=== PATIENT | female | born 1990 | race Caucasian/White ===

== ENCOUNTER 2019-05-07 06:57 | Inpatient (IN) | payer BC ==
[2019-05-07] MEDS ORDERED: Nalbuphine 10 MG/1 ML Vial IVPUSH PRN (07:02)
[2019-05-07] MEDS ORDERED: Sodium Chloride 0.9% 10 ML Syringe FLUSH PRN (07:02)
[2019-05-07] MEDS ORDERED: Ondansetron 4 MG/2 ML SDV IVPUSH PRN (07:02)
--- NOTE | 2019-05-07 07:05 | PCM.LDHP ---
L&D History of Present Illness - General Date of Service: 05/07/19 Admit Problem/Dx: Patient Status Order with Admit Dx/Problem 05/07/19 07:02 Patient Status [ADT] Routine Admission Diagnosis/Problem Admission Diagnosis/Problem Normal in third trimester Source of Information: Patient History Limitations: Reports: No Limitations - History of Present Illness Introduction:: Patient is a 28 y/o at 39 3/7 wks who presents for IOL for distance from hospital. Doing well today. No issues with contractions. Good FM. 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 Para: 2 LMP (Approximate): - Past Surgical History Female Surgical History: Reports: Breast Reconstruction Social & Family History - Tobacco Use Smoking Status *Q: Never Smoker - Alcohol Use Alcohol Use History: No - Recreational Drug Use Recreational Drug Use: No H&P Review of Systems - Review of Systems: Review Of Systems: See Below General: Reports: No Symptoms Pulmonary: Reports: No Symptoms Cardiovascular: Reports: No Symptoms Gastrointestinal: Reports: No Symptoms Genitourinary: Reports: No Symptoms Musculoskeletal: Reports: No Symptoms Skin: Reports: No Symptoms Neurological: Reports: No Symptoms L&D Exam - Exam Exam: See Below - OB Specific Contraction Intensity: Irritability Movement: Active Heart Tones: Present Heart Tones per Min: 140 Heart Rate (FHR) Variability: Moderate (6-25 bmp) Presentation: Vertex - Henderson Score Henderson Score Cervix Position: Midposition Henderson Score Consistency: Soft Henderson Score Effacement: 51-70% Henderson Score Dilation: 1-2 cm Henderson Score Infant's Station: -3 Henderson Score Total: 6 - Exam General: Alert, Oriented, Cooperative Lungs: Clear to Auscultation, Normal Respiratory Effort Cardiovascular: Regular Rate, Regular Rhythm GI/Abdominal Exam: Soft, Non-Tender Genitourinary: Normal external exam Extremities: Normal Inspection Skin: Warm, Dry, Intact - Patient Data Result Diagrams: 05/07/19 07:32 - Problem List (1) 39 weeks gestation of SNOMED Code(s): 86584462 ICD Code: Z3A.39 - 39 WEEKS GESTATION OF Status: Acute Current Visit: Yes Problem List Initiated/Reviewed/Updated: Yes Orders Last 24hrs: Active Orders 24 hr Category Date Time Status Patient Status [ADT] Routine ADT 05/07/19 07:02 Ordered Communication Order [RC] ASDIRECTED Care 05/07/19 07:02 Ordered Communication Order [RC] ASDIRECTED Care 05/07/19 07:02 Ordered Communication Order [RC] ASDIRECTED Care 05/07/19 07:02 Ordered Communication Order [RC] ASDIRECTED Care 05/07/19 07:02 Ordered Heart Tones [RC] ASDIRECTED Care 05/07/19 07:03 Ordered Monitoring [RC] INTERMITTENT Care 05/07/19 07:02 Ordered Non Stress Test [RC] PER UNIT ROUTINE Care 05/07/19 07:02 Ordered Notify Provider [RC] ASDIRECTED Care 05/07/19 07:02 Ordered Notify Provider [RC] PRN Care 05/07/19 07:02 Ordered Peripheral IV Care [RC] . DIRECTED Care 05/07/19 07:03 Ordered Vaginal Exam [RC] ASDIRECTED Care 05/07/19 07:02 Ordered Vital Signs [RC] ASDIRECTED Care 05/07/19 07:02 Ordered Regular Diet [DIET] Diet 05/07/19 Breakfast Ordered CBC W/O DIFF,HEMOGRAM [HEME] Routine Lab 05/07/19 07:02 Ordered RAPID PLASMA REAGIN,RPR [CHEM] Routine Lab 05/07/19 07:02 Ordered TYPE AND SCREEN [BBK] Routine Lab 05/07/19 07:02 Ordered Lactated Ringers [Ringers, Lactated] 1,000 ml Med 05/07/19 07:15 Ordered IV ASDIRECTED Nalbuphine [Nubain] Med 05/07/19 07:02 Ordered 10 mg IVPUSH Q2H PRN Ondansetron [Zofran] Med 05/07/19 07:02 Ordered 4 mg IVPUSH Q4H PRN Oxytocin/Lactated Ringers [Pitocin in LR 10 Units/1,000 Med 05/07/19 07:15 Ordered ML] 10 unit in 1,000 ml IV .CONTINUOUS Oxytocin/Lactated Ringers [Pitocin in LR 10 Units/1,000 Med 05/07/19 07:15 Ordered ML] 10 unit in 1,000 ml IV TITRATE Sodium Chloride 0.9% [Saline Flush] Med 05/07/19 07:02 Ordered 10 ml FLUSH ASDIRECTED PRN Electronic Heart Tones Ext w TOCO [WOMSER] Ot 05/07/19 07:02 Ordered Routine Electronic Heart Tones Internal [WOMSER] Per Unit Ot 05/07/19 07:02 Ordered Routine Peripheral IV Insertion Adult [OM.PC] Routine Ot 05/07/19 07:02 Ordered Assessment/Plan Comment:: 28 y/o woman at 39 3/7 wks presents for IOL due to distance from hospital * Labs * GBS negative, no need for antibiotics * Pain management per patient preference * Pitocin and then AROM when able * Anticipate
[2019-05-07] MEDS ORDERED: Oxytocin/Lactated Ringers 10 UNIT/1,000 ML BAG IV SCH ×2 (07:15)
[2019-05-07] MEDS: Lactated Ringers 1,000 ML IV SCH ×4 (08:00→15:06)
[2019-05-07] MEDS ORDERED: fentaNYL 100 MCG/2 ML SDV EPIDUR PRN (08:56)
[2019-05-07] MEDS ORDERED: diphenhydrAMINE 50 MG/ML SDV IVPUSH PRN (08:56)
[2019-05-07] MEDS ORDERED: Bupivacaine/fentaNYL/NS 100 ML Bag EPIDUR PRN (08:56)
[2019-05-07] MEDS ORDERED: ePHEDrine 50 MG/ML SDV IVPUSH PRN (08:56)
--- NOTE | 2019-05-07 08:56 | PCM.PREANE ---
Preanesthetic Assessment - Procedure Proposed Procedure: JERONIMO - Anesthesia/Transfusion/Family Hx Anesthesia History: Prior Anesthesia Without Reaction Family History of Anesthesia Reaction: No Transfusion History: No Prior Transfusion(s) - Review of Systems General: No Symptoms Pulmonary: Cough (has a cold- better this week than last) Cardiovascular: No Symptoms Gastrointestinal: No Symptoms Neurological: No Symptoms Other: Reports: None - Physical Assessment Vital Signs: Last Vital Signs Temp 96.1 F 05/07/19 07:58 Pulse 86 05/07/19 07:58 Resp 16 05/07/19 07:58 BP 125/76 05/07/19 07:58 Pulse Ox 98 05/07/19 07:58 Height: 5 ft 4 in Weight: 103.873 kg ASA Class: 2 Mental Status: Alert & Oriented x3 Airway Class: Mallampati = 1 Dentition: Reports: Normal Dentition Thyro-Mental Finger Breadths: 3 Mouth Opening Finger Breadths: 3 ROM/Head Extension: Full Lungs: Clear to Auscultation, Normal Respiratory Effort Cardiovascular: Regular Rate, Regular Rhythm - Lab Values: Laboratory Last Values WBC 8.81 K/mm3 (3.98-10.04) 05/07/19 07:32 RBC 4.35 M/mm3 (3.98-5.22) 05/07/19 07:32 Hgb 11.6 gm/L (11.2-15.7) 05/07/19 07:32 Hct 35.0 % (34.1-44.9) 05/07/19 07:32 MCV 80.5 fl (79.4-94.8) D 05/07/19 07:32 MCH 26.7 pg (25.6-32.2) 05/07/19 07:32 MCHC 33.1 g/dl (32.2-35.5) 05/07/19 07:32 RDW Std Deviation 39.3 fL (36.4-46.3) 05/07/19 07:32 Plt Count 293 K/mm3 (182-369) 05/07/19 07:32 MPV 10.3 fl (9.4-12.3) 05/07/19 07:32 Blood Type AB POSITIVE 05/07/19 07:32 Gel Antibody Screen Negative 05/07/19 07:32 - Allergies Allergies/Adverse Reactions: Allergies Allergy/AdvReac Type Severity Reaction Status Date / Time No Known Allergies Allergy Verified 01/01/16 12:50 - Blood Blood Available: No - Acknowledgements Anesthesia Type Planned: Epidural Pt an Appropriate Candidate for the Planned Anesthesia: Yes Alternatives and Risks of Anesthesia Discussed w Pt/Guardian: Yes Pt/Guardian Understands and Agrees with Anesthesia Plan: Yes PreAnesthesia Questionnaire - Past Health History Medical/Surgical History: Denies Medical/Surgical History HEENT History: Reports: None Cardiovascular History: Reports: None Respiratory History: Reports: None Gastrointestinal History: Reports: None [employer]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 Musculoskeletal History: Reports: None Neurological History: Reports: None Psychiatric History: Reports: None - Past Surgical History Female Surgical History: Reports: Breast Reconstruction - SUBSTANCE USE Smoking Status *Q: Never Smoker Tobacco Use Within Last Twelve Months: No Second Hand Smoke Exposure: No Days Per Week of Alcohol Use: 0 Recreational Drug Use History: No - HOME MEDS Home Medications: Home Meds Acetaminophen [Tylenol] 650 mg PO Q4H PRN #0 tablet 01/02/16 [Rx] Benzocaine/Menthol [Dermoplast Pain Relief [place]] 1 spray TOP ASDIRECTED PRN #0 canister 01/02/16 [Rx] Docusate Sodium [Colace] 100 mg PO BID PRN #0 cap 01/02/16 [Rx] Ibuprofen [IJD: Ibuprofen] 600 mg PO Q4H PRN #0 tablet 01/02/16 [Rx] Witch Megha [Tucks] 1 pad TOP ASDIRECTED PRN #0 pad 01/02/16 [Rx] - CURRENT (IN HOUSE) MEDS Current Meds: Current Medications Lactated Ringer's (Ringers, Lactated) 1,000 mls @ 40 mls/hr IV ASDIRECTED ZAHRA Oxytocin/Lactated Ringer's (Pitocin In Lr 10 Units/1,000 Ml) 10 unit in 1,000 mls @ 12 mls/hr IV TITRATE ZAHRA; Protocol Last Titration: 05/07/19 08:35 Dose: 4 munits/min, 24 mls/hr Oxytocin/Lactated Ringer's (Pitocin In Lr 10 Units/1,000 Ml) 10 unit in 1,000 mls @ 500 mls/hr IV .CONTINUOUS ZAHRA Nalbuphine HCl (Nubain) 10 mg IVPUSH Q2H PRN PRN Reason: Pain Ondansetron HCl (Zofran) 4 mg IVPUSH Q4H PRN PRN Reason: Nausea/Vomiting Sodium Chloride (Saline Flush) 10 ml FLUSH ASDIRECTED PRN PRN Reason: Keep Vein Open
--- NOTE | 2019-05-07 12:08 | PCM.PNLD ---
Labor Progress Note - VS & Meds Vital Signs: Last Vital Signs Temp 35.6 C 05/07/19 07:58 Pulse 86 05/07/19 07:58 Resp 16 05/07/19 07:58 BP 125/76 05/07/19 07:58 Pulse Ox 98 05/07/19 07:58 Active Medications: Current Medications Diphenhydramine HCl (Benadryl) 25 mg IVPUSH Q6H PRN PRN Reason: pruritis Ephedrine Sulfate (Ephedrine Sulfate) 5 mg IVPUSH ASDIRECTED PRN PRN Reason: Hypotension Fentanyl (Sublimaze) 100 mcg EPIDUR Q3H PRN PRN Reason: Pain Last Admin: 05/07/19 11:40 Dose: 100 mcg Fentanyl/Bupivacaine HCl (Fentanyl/Bupivacaine/Ns 2 Mcg-0.125% 100 Ml) 100 ml EPIDUR ASDIRECTED PRN PRN Reason: Pain Last Admin: 05/07/19 11:40 Dose: 100 ml Lactated Ringer's (Ringers, Lactated) 1,000 mls @ 40 mls/hr IV ASDIRECTED ZAHRA Last Admin: 05/07/19 11:55 Dose: 100 mls/hr Oxytocin/Lactated Ringer's (Pitocin In Lr 10 Units/1,000 Ml) 10 unit in 1,000 mls @ 12 mls/hr IV TITRATE ZAHRA; Protocol Last Titration: 05/07/19 11:50 Dose: 12 munits/min, 72 mls/hr Oxytocin/Lactated Ringer's (Pitocin In Lr 10 Units/1,000 Ml) 10 unit in 1,000 mls @ 500 mls/hr IV .CONTINUOUS ZAHRA Nalbuphine HCl (Nubain) 10 mg IVPUSH Q2H PRN PRN Reason: Pain Ondansetron HCl (Zofran) 4 mg IVPUSH Q4H PRN PRN Reason: Nausea/Vomiting Sodium Chloride (Saline Flush) 10 ml FLUSH ASDIRECTED PRN PRN Reason: Keep Vein Open - Uterine Contractions Uterine Monitoring Mode: External Joiner Contraction Intensity: Mild to Moderate Uterine Resting Tone: Soft - Monitoring Monitor Mode: External Ultrasound Heart Rate (FHR) Baseline: 145 Heart Rate (FHR) Variability: Moderate (6-25 bmp) Accelerations: Present, 15x15 Decelerations: None Strip Review: Category I - Vaginal Exam Dilation (cm): 2 Effacement (Percent): 50 Station: -3 Cervical Position: Midposition - Labor Progress (Free Text) Labor Progress: Patient doing well. Now comfortable with epidural. AROM performed with release of clear fluid. Continue present management
--- NOTE | 2019-05-07 19:35 | PCM.DEL ---
L & D Note - General Info Date of Service: 05/07/19 - Delivery Note Labor: Induced by ARM, Induced by Oxytocin Delivery Outcome: Livebirth Infant Delivery Method: Spontaneous Vaginal Delivery-Single Infant Delivery Mode: Spontaneous Presentation: Right Occiput Anterior (BRETT) Nuchal Cord: Present (x2) Anesthesia Type: Epidural Amniotic Fluid Description: Clear Episiotomy Type: None Laceration: 1st Degree, Perineal Placenta: Intact, Spontaneous Cord: 3 Vessels Estimated Blood Loss: 200 : Bulb Syringe, Stimulated, Warmed, Strawberry Used Delivery Comments (Free Text/Narrative):: Patient found to be complete and began pushing. With maternal pushing effort head delivered from an BRETT presentation. Nuchal cord tight and so delivered through with gentle downward traction. After shoulders and body delivered nuchal x2 reduced. placed on maternal abdomen. Cord clamped and cut. Cord blood obtained. placenta allowed time to separate and expelled intact. Inspection of the perineum showed 1st degree laceration which was hemostatic and so not repaired - General Info Date of Service: 05/07/19 - Patient Data Vitals - Most Recent: Last Vital Signs Temp 35.6 C 05/07/19 07:58 Pulse 86 05/07/19 07:58 Resp 16 05/07/19 07:58 BP 125/76 05/07/19 07:58 Pulse Ox 98 05/07/19 07:58 Weight - Most Recent: 103.873 kg I&O - Last 24 Hours: Intake & Output 05/07/19 05/07/19 05/07/19 06:59 14:59 22:59 Intake Total 300 Balance 300 Lab Results Last 24 Hours: Laboratory Results - last 24 hr 05/07/19 05/07/19 05/07/19 Range/Units 07:32 07:32 07:32 WBC 8.81 (3.98-10.04) K/mm3 RBC 4.35 (3.98-5.22) M/mm3 Hgb 11.6 (11.2-15.7) gm/L Hct 35.0 (34.1-44.9) % MCV 80.5 D (79.4-94.8) fl MCH 26.7 (25.6-32.2) pg MCHC 33.1 (32.2-35.5) g/dl RDW Std Deviation 39.3 (36.4-46.3) fL Plt Count 293 (182-369) K/mm3 MPV 10.3 (9.4-12.3) fl RPR Non-reactive (NONREACTIVE) Blood Type AB POSITIVE Gel Antibody Screen Negative Med Orders - Current: Current Medications Diphenhydramine HCl (Benadryl) 25 mg IVPUSH Q6H PRN PRN Reason: pruritis Ephedrine Sulfate (Ephedrine Sulfate) 5 mg IVPUSH ASDIRECTED PRN PRN Reason: Hypotension Fentanyl (Sublimaze) 100 mcg EPIDUR Q3H PRN PRN Reason: Pain Last Admin: 05/07/19 11:40 Dose: 100 mcg Fentanyl/Bupivacaine HCl (Fentanyl/Bupivacaine/Ns 2 Mcg-0.125% 100 Ml) 100 ml EPIDUR ASDIRECTED PRN PRN Reason: Pain Last Admin: 05/07/19 11:40 Dose: 100 ml Lactated Ringer's (Ringers, Lactated) 1,000 mls @ 40 mls/hr IV ASDIRECTED ZAHRA Last Admin: 05/07/19 15:06 Dose: 40 mls/hr Oxytocin/Lactated Ringer's (Pitocin In Lr 10 Units/1,000 Ml) 10 unit in 1,000 mls @ 12 mls/hr IV TITRATE ZAHRA; Protocol Last Titration: 05/07/19 18:30 Dose: 16 munits/min, 96 mls/hr Oxytocin/Lactated Ringer's (Pitocin In Lr 10 Units/1,000 Ml) 10 unit in 1,000 mls @ 500 mls/hr IV .CONTINUOUS ZAHRA Nalbuphine HCl (Nubain) 10 mg IVPUSH Q2H PRN PRN Reason: Pain Ondansetron HCl (Zofran) 4 mg IVPUSH Q4H PRN PRN Reason: Nausea/Vomiting Sodium Chloride (Saline Flush) 10 ml FLUSH ASDIRECTED PRN PRN Reason: Keep Vein Open - Problem List & Annotations (1) 39 weeks gestation of SNOMED Code(s): 18702791 Code(s): Z3A.39 - 39 WEEKS GESTATION OF Status: Acute Current Visit: Yes (2) Vaginal delivery SNOMED Code(s): 127445795 Code(s): O80 - ENCOUNTER FOR FULL-TERM UNCOMPLICATED DELIVERY Status: Acute Current Visit: No - Problem List Review Problem List Initiated/Reviewed/Updated: Yes - My Orders Last 24 Hours: My Active Orders 05/07/19 07:02 Patient Status [ADT] Routine Communication Order [RC] ASDIRECTED Communication Order [RC] ASDIRECTED Communication Order [RC] ASDIRECTED Communication Order [RC] ASDIRECTED Monitoring [RC] INTERMITTENT Notify Provider [RC] ASDIRECTED Notify Provider [RC] PRN Vaginal Exam [RC] ASDIRECTED Nalbuphine [Nubain] 10 mg IVPUSH Q2H PRN Ondansetron [Zofran] 4 mg IVPUSH Q4H PRN Sodium Chloride 0.9% [Saline Flush] 10 ml FLUSH ASDIRECTED PRN Electronic Heart Tones Ext w TOCO [WOMSER] Routine Electronic Heart Tones Internal [WOMSER] Per Unit Routine Peripheral IV Insertion Adult [OM.PC] Routine 05/07/19 07:03 Heart Tones [RC] ASDIRECTED Peripheral IV Care [RC] . DIRECTED 05/07/19 07:15 Lactated Ringers [Ringers, Lactated] 1,000 ml IV ASDIRECTED Oxytocin/Lactated Ringers [Pitocin in LR 10 Units/1,000 ML] 10 unit in 1,000 ml IV .CONTINUOUS Oxytocin/Lactated Ringers [Pitocin in LR 10 Units/1,000 ML] 10 unit in 1,000 ml IV TITRATE 05/07/19 19:29 Patient Status Manage Transfer [TRANSFER] Routine Resuscitation Status Routine 05/07/19 Breakfast Regular Diet [DIET] - Assessment Assessment:: 28 y/o G3 now P3003 PPD#0 from at 39 3/7 wks - Plan Plan:: * Routine cares * Encourage breast feeding * Discharge home in 1-2 days
[2019-05-07] MEDS ORDERED: Benzocaine/Menthol 20%-0.5% Spray 56 GM Canister TOP PRN (19:48)
[2019-05-07] MEDS ORDERED: Lanolin 100% Cream 7 GM Tube TOP PRN (19:48)
[2019-05-07] MEDS ORDERED: Witch Hazel Medicated Pads 40/Jar TOP PRN (19:48)
[2019-05-07] MEDS ORDERED: Acetaminophen 325 MG Tab PO PRN (19:48)
--- NOTE | 2019-05-07 20:35 | PCM48HPAN ---
Post Anesthesia Note - EVALUATION WITHIN 48HRS OF ANESTHETIC Vital Signs in Normal Range: Yes Patient Participated in Evaluation: Yes Respiratory Function Stable: Yes Airway Patent: Yes Cardiovascular Function Stable: Yes Hydration Status Stable: Yes Pain Control Satisfactory: Yes Nausea and Vomiting Control Satisfactory: Yes Mental Status Recovered: Yes (states epid worked great) Vital Signs: Last Vital Signs Temp 96.1 F 05/07/19 07:58 Pulse 86 05/07/19 07:58 Resp 16 05/07/19 07:58 BP 125/76 05/07/19 07:58 Pulse Ox 98 05/07/19 07:58
[2019-05-07] MEDS: Ibuprofen 600 MG Tab PO PRN (21:50)
[2019-05-08] MEDS ORDERED: Bupivacaine 0.25% 10 ML SDV ONE
[2019-05-08] MEDS: Ibuprofen 600 MG Tab PO PRN ×3 (04:47→20:46)
--- NOTE | 2019-05-08 07:13 | PCM.PNPP ---
- General Info Date of Service: 05/08/19 Functional Status: Reports: Pain Controlled, Tolerating Diet, Ambulating, Urinating - Review of Systems General: Reports: No Symptoms Pulmonary: Reports: No Symptoms Cardiovascular: Reports: No Symptoms Gastrointestinal: Reports: No Symptoms Genitourinary: Reports: No Symptoms Musculoskeletal: Reports: No Symptoms Neurological: Reports: No Symptoms - Patient Data Vital Signs - Most Recent: Last Vital Signs Temp 36.9 C 05/07/19 21:46 Pulse 68 05/07/19 21:46 Resp 12 05/07/19 21:46 BP 104/60 05/07/19 21:46 Pulse Ox 99 05/07/19 21:46 Weight - Most Recent: 103.873 kg Lab Results - Last 24 Hours: Laboratory Results - last 24 hr 05/07/19 05/07/19 05/07/19 Range/Units 07:32 07:32 07:32 WBC 8.81 (3.98-10.04) K/mm3 RBC 4.35 (3.98-5.22) M/mm3 Hgb 11.6 (11.2-15.7) gm/L Hct 35.0 (34.1-44.9) % MCV 80.5 D (79.4-94.8) fl MCH 26.7 (25.6-32.2) pg MCHC 33.1 (32.2-35.5) g/dl RDW Std Deviation 39.3 (36.4-46.3) fL Plt Count 293 (182-369) K/mm3 MPV 10.3 (9.4-12.3) fl RPR Non-reactive (NONREACTIVE) Blood Type AB POSITIVE Gel Antibody Screen Negative Med Orders - Current: Current Medications Acetaminophen (Tylenol) 650 mg PO Q4H PRN PRN Reason: mild pain or fever Last Admin: 05/08/19 02:18 Dose: 650 mg Benzocaine/Menthol (Dermoplast Pain Relief [place]) 0 gm TOP ASDIRECTED PRN PRN Reason: Perineal Comfort Measure Last Admin: 05/07/19 21:11 Dose: 1 applic Docusate Sodium (Colace) 100 mg PO BID PRN PRN Reason: Constipation Emollient Ointment (Lansinoh Hpa) 0 gm TOP ASDIRECTED PRN PRN Reason: Sore Nipples Ibuprofen (Motrin) 600 mg PO Q6H PRN PRN Reason: Mild pain or fever Last Admin: 05/08/19 04:47 Dose: 600 mg Witch Megha (Tucks) 1 pad TOP ASDIRECTED PRN PRN Reason: Perineal Comfort Measure Last Admin: 05/07/19 21:11 Dose: 1 pad Discontinued Medications Diphenhydramine HCl (Benadryl) 25 mg IVPUSH Q6H PRN PRN Reason: pruritis Ephedrine Sulfate (Ephedrine Sulfate) 5 mg IVPUSH ASDIRECTED PRN PRN Reason: Hypotension Fentanyl (Sublimaze) 100 mcg EPIDUR Q3H PRN PRN Reason: Pain Last Admin: 05/07/19 11:40 Dose: 100 mcg Fentanyl/Bupivacaine HCl (Fentanyl/Bupivacaine/Ns 2 Mcg-0.125% 100 Ml) 100 ml EPIDUR ASDIRECTED PRN PRN Reason: Pain Last Admin: 05/07/19 11:40 Dose: 100 ml Lactated Ringer's (Ringers, Lactated) 1,000 mls @ 40 mls/hr IV ASDIRECTED ZAHRA Last Admin: 05/07/19 15:06 Dose: 40 mls/hr Oxytocin/Lactated Ringer's (Pitocin In Lr 10 Units/1,000 Ml) 10 unit in 1,000 mls @ 12 mls/hr IV TITRATE ZAHRA; Protocol Last Titration: 05/07/19 18:30 Dose: 16 munits/min, 96 mls/hr Oxytocin/Lactated Ringer's (Pitocin In Lr 10 Units/1,000 Ml) 10 unit in 1,000 mls @ 500 mls/hr IV .CONTINUOUS ZAHRA Last Admin: 05/07/19 19:15 Dose: 500 mls/hr Nalbuphine HCl (Nubain) 10 mg IVPUSH Q2H PRN PRN Reason: Pain Ondansetron HCl (Zofran) 4 mg IVPUSH Q4H PRN PRN Reason: Nausea/Vomiting Sodium Chloride (Saline Flush) 10 ml FLUSH ASDIRECTED PRN PRN Reason: Keep Vein Open - Infant Interaction Infant Disposition, : [place] in Room with Family Interaction: Holding Infant Feeding: Breastfed ; Nursed Well Support Person: - Recovery Exam Fundal Tone: Firm Fundal Level: At Umbilicus Fundal Placement: Midline Lochia Amount: Small Lochia Color: Rubra/Red Perineum Description: Intact, Minimal Bruising/Swelling Bladder Status: Voiding Urinary Elimination: Voided - Exam General: Alert, Oriented, Cooperative GI/Abdominal Exam: Soft, Non-Tender Extremities: Normal Inspection Skin: Warm, Dry, Intact - Problem List & Annotations (1) 39 weeks gestation of SNOMED Code(s): 66871791 Code(s): Z3A.39 - 39 WEEKS GESTATION OF Status: Acute Current Visit: Yes (2) Vaginal delivery SNOMED Code(s): 925864324 Code(s): O80 - ENCOUNTER FOR FULL-TERM UNCOMPLICATED DELIVERY Status: Acute Current Visit: No - Problem List Review Problem List Initiated/Reviewed/Updated: Yes - My Orders Last 24 Hours: My Active Orders 05/07/19 07:02 Monitoring [RC] INTERMITTENT 05/07/19 19:29 Resuscitation Status Routine 05/07/19 19:48 Activity as Tolerated [RC] PER UNIT ROUTINE Vital Signs [RC] 03,09,15,21 Acetaminophen [Tylenol] 650 mg PO Q4H PRN Benzocaine/Menthol [Dermoplast Pain Relief [place]] See Dose Instructions TOP ASDIRECTED PRN Docusate Sodium [Colace] 100 mg PO BID PRN Ibuprofen [Motrin] 600 mg PO Q6H PRN Lanolin [Lansinoh HPA] See Dose Instructions TOP ASDIRECTED PRN Witch Megha [Tucks] 1 pad TOP ASDIRECTED PRN Assess Lochia [WOMSER] Per Unit Routine Assess Uterine Involution [WOMSER] Per Unit Routine Breast Pump [WOMSER] Per Unit Routine Heat Therapy [OM.PC] PRN Ice Therapy [OM.PC] Per Unit Routine Perineal Care [OM.PC] Per Unit Routine Peripheral IV Discontinue [OM.PC] Routine Sitz Bath [OM.PC] Per Unit Routine 05/07/19 Dinner Regular Diet [DIET] 05/08/19 19:48 Heat Therapy [OM.PC] PRN - Assessment Assessment:: 28 y/o G3 now P3003 PPD#1 from at 39 3/7 wks - Plan Plan:: * Routine cares * Encourage breast feeding * Discharge home today vs tomorrow depending upon patient preference
[2019-05-08] MEDS: Docusate Sodium 100 MG Cap PO PRN (20:47)
--- NOTE | 2019-05-09 06:05 | PCM.DCSUM1 ---
Discharge Summary - Discharge Data Discharge Date: 05/09/19 Discharge Disposition: Home, Self-Care 01 Condition: Good - Discharge Diagnosis/Problem(s) (1) 39 weeks gestation of SNOMED Code(s): 11876847 ICD Code: Z3A.39 - 39 WEEKS GESTATION OF Status: Acute Current Visit: Yes (2) Vaginal delivery SNOMED Code(s): 175061466 ICD Code: O80 - ENCOUNTER FOR FULL-TERM UNCOMPLICATED DELIVERY Status: Acute Current Visit: No - Patient Summary/Data Complications: None Consults: None Recommended Follow-up Testing/Procedures: Follow up in 3 weeks for check Hospital Course: 28 y/o at 39 3/7 wks who presented for IOL. This was done with pitocin and AROM. Progressed well and underwent an uncomplicated . See delivery note. did well and was discharged home on PPD#2 - Patient Instructions Diet: Regular Diet as Tolerated Activity: As Tolerated Activity, Other: Pelvic Rest for 6 weeks Driving: May Drive Today Showering/Bathing: May Shower Showering/Bathing, Other: May Bathe Notify Provider of: Fever, Increased Pain, Swelling and Redness, Drainage, Nausea and/or Vomiting - Discharge Plan *PRESCRIPTION DRUG MONITORING PROGRAM REVIEWED*: Not Applicable *COPY OF PRESCRIPTION DRUG MONITORING REPORT IN PATIENT MINISTERIO: Not Applicable Home Medications: Home Meds Docusate Sodium [Colace] 100 mg PO BID PRN #0 cap 01/02/16 [Rx] Ibuprofen [IJD: Ibuprofen] 600 mg PO Q4H PRN #0 tablet 01/02/16 [Rx] Patient Handouts: Home Care Instructions for Mom Referrals: Arlene Light MD [Primary Care Provider] - (3 weeks for check ) - Discharge Summary/Plan Comment DC Time >30 min.: No - Patient Data Vitals - Most Recent: Last Vital Signs Temp 36.6 C 05/08/19 21:32 Pulse 67 05/09/19 04:11 Resp 14 05/09/19 04:11 BP 125/95 H 05/09/19 04:11 Pulse Ox 99 05/09/19 04:11 Weight - Most Recent: 103.873 kg I&O - Last 24 hours: Intake & Output 05/08/19 05/08/19 05/09/19 14:59 22:59 06:59 Intake Total 120 320 Balance 120 320 Med Orders - Current: Current Medications Acetaminophen (Tylenol) 650 mg PO Q4H PRN PRN Reason: mild pain or fever Last Admin: 05/08/19 02:18 Dose: 650 mg Benzocaine/Menthol (Dermoplast Pain Relief [place]) 0 gm TOP ASDIRECTED PRN PRN Reason: Perineal Comfort Measure Last Admin: 05/07/19 21:11 Dose: 1 applic Docusate Sodium (Colace) 100 mg PO BID PRN PRN Reason: Constipation Last Admin: 05/08/19 20:47 Dose: 100 mg Emollient Ointment (Lansinoh Hpa) 0 gm TOP ASDIRECTED PRN PRN Reason: Sore Nipples Ibuprofen (Motrin) 600 mg PO Q6H PRN PRN Reason: Mild pain or fever Last Admin: 05/08/19 20:46 Dose: 600 mg Witch Megha (Tucks) 1 pad TOP ASDIRECTED PRN PRN Reason: Perineal Comfort Measure Last Admin: 05/07/19 21:11 Dose: 1 pad Discontinued Medications Diphenhydramine HCl (Benadryl) 25 mg IVPUSH Q6H PRN PRN Reason: pruritis Ephedrine Sulfate (Ephedrine Sulfate) 5 mg IVPUSH ASDIRECTED PRN PRN Reason: Hypotension Fentanyl (Sublimaze) 100 mcg EPIDUR Q3H PRN PRN Reason: Pain Last Admin: 05/07/19 11:40 Dose: 100 mcg Fentanyl/Bupivacaine HCl (Fentanyl/Bupivacaine/Ns 2 Mcg-0.125% 100 Ml) 100 ml EPIDUR ASDIRECTED PRN PRN Reason: Pain Last Admin: 05/07/19 11:40 Dose: 100 ml Lactated Ringer's (Ringers, Lactated) 1,000 mls @ 40 mls/hr IV ASDIRECTED ZAHRA Last Admin: 05/07/19 15:06 Dose: 40 mls/hr Oxytocin/Lactated Ringer's (Pitocin In Lr 10 Units/1,000 Ml) 10 unit in 1,000 mls @ 12 mls/hr IV TITRATE ZAHRA; Protocol Last Titration: 05/07/19 18:30 Dose: 16 munits/min, 96 mls/hr Oxytocin/Lactated Ringer's (Pitocin In Lr 10 Units/1,000 Ml) 10 unit in 1,000 mls @ 500 mls/hr IV .CONTINUOUS ZAHRA Last Admin: 05/07/19 19:15 Dose: 500 mls/hr Nalbuphine HCl (Nubain) 10 mg IVPUSH Q2H PRN PRN Reason: Pain Ondansetron HCl (Zofran) 4 mg IVPUSH Q4H PRN PRN Reason: Nausea/Vomiting Sodium Chloride (Saline Flush) 10 ml FLUSH ASDIRECTED PRN PRN Reason: Keep Vein Open
--- NOTE | 2019-05-09 06:05 | PCM.PNPP ---
- General Info Date of Service: 05/09/19 Functional Status: Reports: Pain Controlled, Tolerating Diet, Ambulating, Urinating - Review of Systems General: Reports: No Symptoms Pulmonary: Reports: No Symptoms Cardiovascular: Reports: No Symptoms Gastrointestinal: Reports: No Symptoms Genitourinary: Reports: No Symptoms Musculoskeletal: Reports: No Symptoms Neurological: Reports: No Symptoms - Patient Data Vital Signs - Most Recent: Last Vital Signs Temp 36.6 C 05/08/19 21:32 Pulse 67 05/09/19 04:11 Resp 14 05/09/19 04:11 BP 125/95 H 05/09/19 04:11 Pulse Ox 99 05/09/19 04:11 Weight - Most Recent: 103.873 kg I&O - Last 24 Hours: Intake & Output 05/08/19 05/08/19 05/09/19 14:59 22:59 06:59 Intake Total 120 320 Balance 120 320 Med Orders - Current: Current Medications Acetaminophen (Tylenol) 650 mg PO Q4H PRN PRN Reason: mild pain or fever Last Admin: 05/08/19 02:18 Dose: 650 mg Benzocaine/Menthol (Dermoplast Pain Relief [place]) 0 gm TOP ASDIRECTED PRN PRN Reason: Perineal Comfort Measure Last Admin: 05/07/19 21:11 Dose: 1 applic Docusate Sodium (Colace) 100 mg PO BID PRN PRN Reason: Constipation Last Admin: 05/08/19 20:47 Dose: 100 mg Emollient Ointment (Lansinoh Hpa) 0 gm TOP ASDIRECTED PRN PRN Reason: Sore Nipples Ibuprofen (Motrin) 600 mg PO Q6H PRN PRN Reason: Mild pain or fever Last Admin: 05/08/19 20:46 Dose: 600 mg Witch Megha (Tucks) 1 pad TOP ASDIRECTED PRN PRN Reason: Perineal Comfort Measure Last Admin: 05/07/19 21:11 Dose: 1 pad Discontinued Medications Diphenhydramine HCl (Benadryl) 25 mg IVPUSH Q6H PRN PRN Reason: pruritis Ephedrine Sulfate (Ephedrine Sulfate) 5 mg IVPUSH ASDIRECTED PRN PRN Reason: Hypotension Fentanyl (Sublimaze) 100 mcg EPIDUR Q3H PRN PRN Reason: Pain Last Admin: 05/07/19 11:40 Dose: 100 mcg Fentanyl/Bupivacaine HCl (Fentanyl/Bupivacaine/Ns 2 Mcg-0.125% 100 Ml) 100 ml EPIDUR ASDIRECTED PRN PRN Reason: Pain Last Admin: 05/07/19 11:40 Dose: 100 ml Lactated Ringer's (Ringers, Lactated) 1,000 mls @ 40 mls/hr IV ASDIRECTED ZAHRA Last Admin: 05/07/19 15:06 Dose: 40 mls/hr Oxytocin/Lactated Ringer's (Pitocin In Lr 10 Units/1,000 Ml) 10 unit in 1,000 mls @ 12 mls/hr IV TITRATE ZAHRA; Protocol Last Titration: 05/07/19 18:30 Dose: 16 munits/min, 96 mls/hr Oxytocin/Lactated Ringer's (Pitocin In Lr 10 Units/1,000 Ml) 10 unit in 1,000 mls @ 500 mls/hr IV .CONTINUOUS ZAHRA Last Admin: 05/07/19 19:15 Dose: 500 mls/hr Nalbuphine HCl (Nubain) 10 mg IVPUSH Q2H PRN PRN Reason: Pain Ondansetron HCl (Zofran) 4 mg IVPUSH Q4H PRN PRN Reason: Nausea/Vomiting Sodium Chloride (Saline Flush) 10 ml FLUSH ASDIRECTED PRN PRN Reason: Keep Vein Open - Interaction Disposition, : in Room with Family Interaction: Holding Infant Infant Feeding: Breastfed Infant; Nursed Well Support Person: - Recovery Exam Fundal Tone: Firm Fundal Level: 2 Fingerbreadths Below Umbilicus Fundal Placement: Midline Lochia Amount: Small Lochia Color: Rubra/Red Perineum Description: Intact, Minimal Bruising/Swelling Episiotomy/Laceration: None Bladder Status: Voiding Urinary Elimination: Voided - Exam General: Alert, Oriented, Cooperative GI/Abdominal Exam: Soft, Non-Tender Extremities: Normal Inspection Skin: Warm, Dry, Intact - Problem List & Annotations (1) 39 weeks gestation of SNOMED Code(s): 36221789 Code(s): Z3A.39 - 39 WEEKS GESTATION OF Status: Acute Current Visit: Yes (2) Vaginal delivery SNOMED Code(s): 590372602 Code(s): O80 - ENCOUNTER FOR FULL-TERM UNCOMPLICATED DELIVERY Status: Acute Current Visit: No - Problem List Review Problem List Initiated/Reviewed/Updated: Yes - My Orders Last 24 Hours: My Active Orders 05/08/19 19:48 Heat Therapy [OM.PC] PRN - Assessment Assessment:: 28 y/o G3 now P3003 PPD#2 from at 39 3/7 wks - Plan Plan:: * Routine cares * Encourage breast feeding * Discharge home today
[2019-05-09] MEDS: Ibuprofen 600 MG Tab PO PRN (08:17)
[2019-05-09] MEDS: Docusate Sodium 100 MG Cap PO PRN (08:17)
[2019-05-09 10:02] VITALS: BP 130/71
== END 2019-05-09 10:50 | disposition home or self-care (01) | DRG 560 ==
LOC: JD.OB 07:02 → OBSVTOIN 07:02 → JD.OB 20:01
PROVIDERS: ADMIT Obstetrics & Gynecology; ATTEND Obstetrics & Gynecology
PROC: 3E033VJ Introduction of Other Hormone into Peripheral Vein, Percutaneous Approach (ICD-10-PCS; principal; 2019-05-07)
PROC: 10E0XZZ Delivery of Products of Conception, External Approach (ICD-10-PCS; 2019-05-07)
PROC: 10907ZC Drainage of Amniotic Fluid, Therapeutic from Products of Conception, Via Natural or Artificial Opening (ICD-10-PCS; 2019-05-07)
PROC: 4A1HXCZ Monitoring of Products of Conception, Cardiac Rate, External Approach (ICD-10-PCS; 2019-05-07)
DX: O69.1XX0 Labor and delivery complicated by cord around neck, with compression, not applicable or unspecified (principal); O70.0 First degree perineal laceration during delivery; Z3A.39 39 weeks gestation of pregnancy; Z37.0 Single live birth
CPT/HCPCS: 36415; 51702; 59025; 59409; 85027; 86592; 86850; 86900; 86901; A9270-GY; J2590; J3010; J3490; J7120